=== PATIENT | male | born 2000 | race African-American/Black ===

== ENCOUNTER 2020-11-13 18:22 | Emergency (ER) | payer MEDICAID ==
[~2020-11-13] VITALS: Ht 170.2 cm; Wt 75.0 kg
[2020-11-13 18:41] VITALS: BP 137/89
== END 2020-11-13 18:55 | disposition home or self-care (01) ==
LOC: ER 18:22
DX: F41.9 Anxiety disorder, unspecified (principal)
CPT/HCPCS: 99283